=== PATIENT | female | born 1945 | race Caucasian/White ===

== ENCOUNTER 2023-02-07 06:03 | Observation (INO) | payer MEDICARE, BC ==
[2023-01-31 16:10] LABS: BASOPHILS % (AUTO) 0.6 % (0-1); EOSINOPHILS # (AUTO) 0.3 X10'3 (0-0.9); EOSINOPHILS % (AUTO) 3.5 % (0-6); LYMPHOCYTES # (AUTO) 1.6 X10'3 (1.1-4.8); LYMPHOCYTES % (AUTO) 21.3 % (21-51); MEAN CORPUSCULAR HEMOGLOBIN 33.3 PG (27.0-31.0); MEAN CORPUSCULAR HGB CONC 33.5 g/dL (33.0-36.5); MEAN CORPUSCULAR VOLUME 99.3 FL (78-98); MEAN PLATELET VOLUME 10.4 FL (7.4-10.4); MONOCYTES # (AUTO) 1.1 X10'3 (0-0.9); MONOCYTES % (AUTO) 14.2 % (2-12); NEUTROPHILS # (AUTO) 4.6 X10'3 (1.8-7.7); NEUTROPHILS % (AUTO) 60.4 % (42-75); PRE OP HEMATOCRIT 41.1 % (35.0-45.0); PRE OP HEMOGLOBIN 13.8 g/dL (12.0-16.0); PRE OP PLATELET COUNT 220 X10'3 (140-440); PRE OP WHITE BLOOD COUNT 7.6 10'3 (4.8-10.8); RED BLOOD COUNT 4.14 X10'6 (4.20-5.60); RED CELL DISTRIBUTION WIDTH 13.7 % (11.5-14.5)
[2023-01-31 16:26] LABS: ALBUMIN 3.6 G/DL (3.4-5.0); ALBUMIN/GLOBULIN RATIO 0.8 (1.1-1.5); ALKALINE PHOSPHATASE 79 IU/L (46-116); BLOOD UREA NITROGEN 24 MG/DL (7-18); BUN/CREATININE RATIO 20.9 (10.0-20.0); CALCIUM 9.3 MG/DL (8.5-10.1); CHLORIDE 104 MMOL/L (99-107); CREATININE 1.15 MG/DL (0.40-0.90); PRE OP ALT 25 U/L (30-65); PRE OP ANION GAP 10 (8-16); PRE OP AST 19 U/L (10-37); PRE OP BILIRUB, TOTAL 0.3 MG/DL (0.0-1.0); PRE OP GLUCOSE 96 MG/DL (70-104); PRE OP POTASSIUM 3.7 MMOL/L (3.4-5.1); PRE OP SODIUM 139 MMOL/L (135-145); TOTAL CARBON DIOXIDE 25.4 MMOL/L (24-32); TOTAL PROTEIN 7.9 G/DL (6.4-8.2); eGFR 46 ML/MIN
[2023-01-31 16:36] LABS: PRE OP INR 0.9 INR
[2023-02-07] VITALS (36 sets, daily range): BP systolic 101–148; BP diastolic 46–79; PULSE 51–102; RESP 11–20; TEMP 97–97.7; O2SAT 91–100
[~2023-02-07] VITALS: Ht 170.2 cm; Wt 77.9 kg
[~2023-02-07 06:03] MED LIST: NO HOME MEDS; cefazolin 2gm/D5W 100mL 100 ML IV ONE; famotidine 20mg tablet PO ONE; ringers solution, lacted 1,000 ML IV SCH
[2023-02-07] MEDS ORDERED: methylene blue (5mg/ml) 50mg/10ml ampul IV ONE (06:53)
[2023-02-07] MEDS ORDERED: BUPIVAcaine/PF 2.5mg/ml (0.25%) 10ml vial ONE (06:54)
[2023-02-07] MEDS ORDERED: BUPIVACAINE liposomal/PF 13.3 MG/ML vial IM ONE ×2 (06:54→08:00)
[2023-02-07] MEDS ORDERED: midazolam 1 mg/ML 2ml injection ONE (07:56)
[2023-02-07] MEDS ORDERED: fentaNYL/PF 50MCG/1 ML 2ML syringe ONE ×2 (07:56→08:59)
[2023-02-07] MEDS ORDERED: BUPIVAcaine 0.5% inj/PF 30 ML ONE (08:00)
[2023-02-07] MEDS ORDERED: LIDOcaine 2% (20mg/ml) 5ml vial ONE (08:06)
[2023-02-07] MEDS ORDERED: sevoflurane 250ml liquid IH ONE (08:06)
[2023-02-07] MEDS ORDERED: dexamethasone sod phosphate 4mg/ml inj. ONE (08:32)
[2023-02-07] MEDS ORDERED: ePHEDrine 50MG/ML INJ. ONE (08:32)
[2023-02-07] MEDS ORDERED: propofol inj 20 ML IV ONE (08:32)
[2023-02-07] MEDS ORDERED: acetaminophen 1,000mg/100ml IV 100 ML IV ONE (08:33)
[2023-02-07] MEDS ORDERED: ondansetron/PF 4mg/2ml inj ONE (08:33)
[2023-02-07] MEDS ORDERED: hydrALAZINE 20mg/ml inj. IV ONE (08:57)
[2023-02-07] MEDS ORDERED: morphine 2 MG/ML inj. syringe IV PRN (09:10)
[2023-02-07] MEDS ORDERED: ringers solution, lacted 1,000 ML IV SCH (09:10)
[2023-02-07] MEDS ORDERED: hydrALAZINE 20mg/ml inj. IV PRN (09:10)
[2023-02-07] MEDS ORDERED: morphine 4 MG/ML inj SYRINge IV PRN (09:10)
[2023-02-07] MEDS ORDERED: fentaNYL/PF 50MCG/1 ML 2ML syringe IV PRN (09:10)
[2023-02-07] MEDS ORDERED: enalaprilat dihydrate 2.5mg/2ml vial IV PRN (09:10)
[2023-02-07] MEDS ORDERED: scopolamine 1MG/72H patch 1 PATCH PATCH.TD.3 TD SCH (09:10)
[2023-02-07] MEDS ORDERED: ondansetron/PF 4mg/2ml inj IV PRN (09:10)
[2023-02-07] MEDS ORDERED: proMETHazine 25mg rectal suppository RC PRN ×2 (09:10)
[2023-02-07] MEDS ORDERED: proCHLORperazine 10 MG/2 ml inj IV PRN (09:10)
--- NOTE | 2023-02-07 10:33 | NUR ---
Received from OR via HOSPITAL BED TO RR 8, accompanied by Anesthesiologist DR GUEVARA and report given by Anesthesiolgist. PT PRESEENTS WITH PIV 20G RIGHT AC, KIRILL WRAP ON CHEST CDI, SPO2 99% MASK 6L, LR RUNNING AT 100MLS/HR, VSS. Addendum: 02/07/23 at 1047 by Johanna Powell RN, RN Amended: Links added.
--- NOTE | 2023-02-07 10:33 | NUR ---
PT HAS COLLIN DRAIN WITH 5MLS OUTPUT FROM OR. Addendum: 02/07/23 at 1401 by Johanna Powell RN, RN Amended: Links added.
[2023-02-07] MEDS ORDERED: bisacodyl 10mg suppository rectal RC PRN (10:45)
[2023-02-07] MEDS: ringers solution, lacted 1,000 ML IV SCH ×2 (10:45→18:45)
[2023-02-07] MEDS: fentaNYL/PF 50MCG/1 ML 2ML syringe IV PRN ×2 (11:54→13:57)
--- NOTE | 2023-02-07 15:10 | NUR ---
Patient in room ORTHO 4023. I have received report from Anthony POP in recovery and had the opportunity to ask questions and assume patient care.
--- NOTE | 2023-02-07 15:23 | NUR ---
Report called to receiving nurse ARLEEN POP. Transferred via HOSPITAL BED TO ROOM 402. BED IN LOW LOCKED POSITION WITH CALL LIGHT IN REACH. PT HOOKED UP TO BEDSIDE VITAL MACHINE. Belongings TAKEN TO ROOM WITH PT, 1 PT ALMA DELIA MORA. Special Issues communicated to receiving nurse. Addendum: 02/07/23 at 1624 by Johanna Powell RN RN Amended: Links added.
[2023-02-07] MEDS: ceFAZolin 1GM/D5W- ADD-VANTAGE 50 ML IV SCH ×2 (16:55→23:43)
[2023-02-07] MEDS: ondansetron/PF 4mg/2ml inj IV PRN ×2 (16:58→23:43)
--- NOTE | 2023-02-07 18:00 | NUR ---
Received report from AM shift DONN Chauhan, assumed care. Pt in bed resting. No s/s of distress at this time.
[2023-02-08] MEDS: HYDROcodone/acetaminophen 10/325mg tab PO PRN ×2 (02:05→08:28)
[2023-02-08] MEDS: ringers solution, lacted 1,000 ML IV SCH (02:45)
--- NOTE | 2023-02-08 04:20 | NUR ---
Reviewed Nicole RIDER's documentation and agree with documentation except where I charted my own findings. EMAR has been reviewed for iv medicine too.
[2023-02-08 06:00] VITALS: BP 114/48; PULSE 52; RESP 13; TEMP 97.6; O2SAT 93
[2023-02-08 06:10] LABS: BASOPHILS # (AUTO) 0.1 X10'3 (0-0.2); BASOPHILS % (AUTO) 0.5 % (0-1); EOSINOPHILS % (AUTO) 0 % (0-6); HEMATOCRIT 33.3 % (35.0-45.0); HEMOGLOBIN 11.2 g/dl (12.0-16.0); LYMPHOCYTES # (AUTO) 1.3 X10'3 (1.1-4.8); MEAN CORPUSCULAR HEMOGLOBIN 33.1 PG (27.0-31.0); MEAN CORPUSCULAR HGB CONC 33.5 g/dL (33.0-36.5); MEAN CORPUSCULAR VOLUME 98.7 FL (78-98); MEAN PLATELET VOLUME 10.7 FL (7.4-10.4); MONOCYTES # (AUTO) 1.3 X10'3 (0-0.9); MONOCYTES % (AUTO) 9.9 % (2-12); NEUTROPHILS # (AUTO) 10.7 X10'3 (1.8-7.7); NEUTROPHILS % (AUTO) 79.6 % (42-75); PLATELET COUNT 196 X10'3 (140-440); RED BLOOD COUNT 3.37 X10'6 (4.20-5.60); WHITE BLOOD COUNT 13.4 X10'3 (4.5-11.0)
--- NOTE | 2023-02-08 06:35 | NUR ---
Patient in room ORTHO 4023. I have received report from Nicole POP and had the opportunity to ask questions and assume patient care.
[2023-02-08] MEDS ORDERED: scopolamine 1MG/72H patch 1 PATCH PATCH.TD.3 TD SCH (08:00)
[2023-02-08] MEDS: ceFAZolin 1GM/D5W- ADD-VANTAGE 50 ML IV SCH (08:58)
[2023-02-08 10:00] VITALS: BP 112/51; PULSE 54; RESP 18; TEMP 97.9; O2SAT 98
[2023-02-08] MEDS ORDERED: ondansetron 4mg rapidly disintigrating tab PO ONE (11:30)
--- NOTE | 2023-02-08 12:46 | NUR ---
I agree with Betty Lyman LVN's assessment.
--- NOTE | 2023-02-08 15:15 | NUR ---
Patient discharged today. IV removed and canula intact. Patient was educated on how to empty COLLIN and post mastectomy instructions were given. Patient was dressed and wheeled downstairs. Patient was helped into private vehicle.
== END 2023-02-08 15:00 | disposition home or self-care (01) ==
LOC: PAS 06:03 → PACU 10:55 → ORTHO 4S 15:35
PROVIDERS: ADMIT Surgery; ATTEND Surgery
DX: C50.911 Malignant neoplasm of unspecified site of right female breast (principal); M19.90 Unspecified osteoarthritis, unspecified site; I12.9 Hypertensive chronic kidney disease with stage 1 through stage 4 chronic kidney disease, or unspecified chronic kidney disease; N18.30 Chronic kidney disease, stage 3 unspecified; Z79.899 Other long term (current) drug therapy
CPT/HCPCS: 19307; 36415; 38525; 80053; 82948; 85025; 85610; 85730; 87081; 93005; 96365; 96366; 96375; 96376; A6258; C9290; G0378; J0131; J0360; J0690; J1100; J2250; J2270; J2405; J2704; J3010; J3490; J7120; Q9968; S0020; A4215; A4615; A4618; A6213; A6253; A6446; A6449; A7000; C9250